=== PATIENT | male | born 1980 | race Caucasian/White ===

== ENCOUNTER 2018-08-27 00:17 | Emergency (ER) | payer MEDICAID ==
[~2018-08-27] VITALS: Ht 180.3 cm; Wt 102.5 kg
[2018-08-27 00:35] VITALS: Ht 180.3 cm; Wt 102.5 kg
[2018-08-27 03:02] VITALS: BP 155/90
== END 2018-08-27 03:02 | disposition home or self-care (01) ==
LOC: ED 00:17
DX: J11.1 Influenza due to unidentified influenza virus with other respiratory manifestations (principal); J40 Bronchitis, not specified as acute or chronic
CPT/HCPCS: 87804; J7512

== ENCOUNTER 2018-10-29 21:38 | Emergency (ER) | payer MEDICAID ==
[~2018-10-29] VITALS: Ht 180.3 cm; Wt 102.1 kg
[2018-10-29 21:57] VITALS: Ht 180.3 cm; Wt 102.1 kg
[2018-10-29 23:00] LABS: BASOPHIL % 0.3 % (0-2); PLATELET COUNT 291 x10^3mcL (130-400); RED CELL DISTRIBUTION WIDTH 13.3 % (11.5-14.5)
[2018-10-29 23:20] LABS: CALCIUM 8.7 mg/dL (8.5-10.1); CARBON DIOXIDE 24.4 mmol/L (21-32); CHLORIDE SERUM 106 mmol/L (98-107); CREATININE SERUM 1.2 mg/dL (0.7-1.3); GFR1 > 60 mL/min; GLUCOSE SERUM 123 mg/dL (74-106); POTASSIUM SERUM 3.7 mmol/L (3.5-5.1); SODIUM SERUM 139 mmol/L (136-145)
[2018-10-29 23:25] LABS: ALBUMIN 3.7 g/dL (3.4-5.0); ALKALINE PHOSPHATASE 75 U/L (46-116); ALT/SGPT 62 U/L (16-63); AST/SGOT 18 U/L (15-37); BILIRUBIN TOTAL 0.26 mg/dL (0.20-1.00); FREE T4 0.92 ng/dL (0.76-1.46); MAGNESIUM 2.2 mg/dL (1.8-2.4); TOTAL PROTEIN, SERUM 7.1 g/dL (6.4-8.2)
[2018-10-30 02:02] VITALS: BP 138/85
== END 2018-10-30 02:02 | disposition home or self-care (01) ==
LOC: ED 21:38
PROVIDERS: Emergency Medicine
DX: R20.2 Paresthesia of skin (principal); R00.2 Palpitations; R31.9 Hematuria, unspecified
CPT/HCPCS: 36415; 84439